=== PATIENT | female | born 1945 | race Caucasian/White ===

== ENCOUNTER 2019-09-26 06:41 | Outpatient (CLI) | payer MEDICARE, OTHER ==
[2019-09-26 14:05] LABS: Hemoglobin 14.2 g/dL (12.0-16.0)
[2019-09-26 14:32] LABS: Anion Gap 11 mmol/L (10-20); BUN (Urea Nitrogen) 18 mg/dL (9.8-20.1); Calc. Creatinine Clearance 0 mL/min (70-130); Calcium 9.2 mg/dL (7.8-10.44); Carbon Dioxide 23 mmol/L (23-31); Chloride 108 mmol/L (98-107); Estimated GFR-MDRD 61; Glucose 98 mg/dL (83-110); Potassium 4.1 mmol/L (3.5-5.1); Sodium 138 mmol/L (136-145)
[2019-09-27 12:20] LABS: SARS-CoV-2 MS2 Positive; SARS-CoV-2 N Gene Negative; SARS-CoV-2 S Gene Negative; SARS-CoV-2 orf1ab Negative
== END 2019-09-26 06:42 | disposition home or self-care (01) ==
LOC: LABBT 06:41
PROVIDERS: ATTEND Specialist
DX: Z01.818 Encounter for other preprocedural examination (principal); Z11.59 Encounter for screening for other viral diseases; H61.892 Other specified disorders of left external ear
CPT/HCPCS: 80048; 85014; 85018; 93005; U0003; 87635; 93010

== ENCOUNTER 2019-09-29 10:15 | Day surgery (SDC) | payer MEDICARE ==
[2019-09-23 12:43] VITALS: BMI 24.5
[~2019-09-29 10:15] MED LIST: Dexamethasone 20 MG/5 ML VIAL ONE; EPHEDRINE 25 MG/5 ML SYRINGE ONE; Lidocaine 1% PF 5 ML VIAL ONE; Ondansetron PF 4 MG/2 ML Vial ONE; PHENYLEPHRINE-NS 100 MCG/ML 10 ML SYRINGE ONE; PROPOFOL 200 MG/20 ML VIAL ONE
[2019-09-29] MEDS ORDERED: Bacitracin Zinc Ointment 30 gm TUBE ONE (13:02)
[2019-09-29] MEDS ORDERED: Lidocaine 1% w/Epinephrine 1:100K 20 ML VIAL ONE (13:02)
[2019-09-29] MEDS ORDERED: Fentanyl 100 MCG/2 ML VIAL ONE ×2 (13:05→15:11)
[2019-09-29] MEDS ORDERED: Mineral Oil Sterile 10ML 10 ML UDCUP ONE (14:07)
[2019-09-29] MEDS ORDERED: HYDROcodone/Acetaminophen 5/325 mg Tablet ONE (15:40)
--- NOTE | 2019-09-30 13:59 | OP ---
DATE OF PROCEDURE: 09/29/2019 PREOPERATIVE DIAGNOSIS: Malignant left ear lesion, measuring 5 cm. POSTOPERATIVE DIAGNOSIS: Malignant left ear lesion, measuring 5 cm. PROCEDURES PERFORMED: 1. Excision of the malignant left ear lesion, measuring 5 cm. 2. Split-thickness skin graft reconstruction. 3. [place] of split-thickness skin graft, measuring 5 cm, from the left shoulder. 4. Complex closure of split-thickness skin graft donor site, measuring 5 cm. PROCEDURE IN DETAIL: After consent was obtained, the patient was identified, brought to the operating room, placed on the operating room table in supine position. General endotracheal anesthesia was obtained. The patient was positioned for surgery and prepped and draped in sterile fashion. The areas of donor site and the surgical site were infiltrated with 1% lidocaine with 1:100,000 epinephrine. We then excised the tumor that involved a complicated dimensional excision involving the antihelix external canal and hugh bowl, measuring approximately 5 cm. Specimen was sent for histologic evaluation and margins. We then obtained hemostasis with bipolar cautery and turned our attention to the left shoulder. A freehand skin graft was removed. The split-thickness skin graft was harvested to fill the defect with a #10 blade. We then placed the skin graft into the defect and continued to excise the skin graft site through the dermis. We were then able to close the dermis with interrupted Monocryl and the skin with a running 5-0 suture. Sterile dressing was applied. We then turned our attention to the surgical site where the skin graft was tacked to the margin of the defect using a rapidly absorbing 6-0 gut. A sterile bolster was then placed using Xeroform followed by a cotton ball soaked in mineral oil. We then placed 2-0 sutures in silk, which helped hold the bolster in place. At the completion of the procedure, the patient was awakened, extubated, and taken to recovery room in stable condition prior to discharge home. Job ID: [id number]
== END 2019-09-29 17:10 | disposition home or self-care (01) ==
LOC: SDC 10:15
PROVIDERS: ATTEND Specialist
PROC: 0HB3XZZ Excision of Left Ear Skin, External Approach (ICD-10-PCS; principal; 2019-09-29)
PROC: 0HR3X74 Replacement of Left Ear Skin with Autologous Tissue Substitute, Partial Thickness, External Approach (ICD-10-PCS; 2019-09-29)
PROC: 0HBCXZZ Excision of Left Upper Arm Skin, External Approach (ICD-10-PCS; 2019-09-29)
DX: D23.22 Other benign neoplasm of skin of left ear and external auricular canal (principal); F32.9 Major depressive disorder, single episode, unspecified; K21.9 Gastro-esophageal reflux disease without esophagitis; R49.0 Dysphonia; Z79.899 Other long term (current) drug therapy; Z88.0 Allergy status to penicillin; Z91.018 Allergy to other foods
CPT/HCPCS: 88305; J1100; J2405; J2704; J3010